=== PATIENT | female | born 2000 | race Caucasian/White ===

== ENCOUNTER 2019-02-12 05:57 | Outpatient (CLI) | payer OTHER ==
[2019-02-12 06:55] LABS: T.VAGINALIS (WET MOUNT) NO TRICHOMONAS SEEN; WBCS (WET MOUNT) FEW WBCS SEEN; YEAST (WET MOUNT) NO YEAST SEEN
[2019-02-12 06:56] LABS: BACTERIA (WET MOUNT) 3+ BACTERIA SEEN; EPITHELIALS (WET MOUNT) 3+ EPITHELIALS SEEN; RBCS (WET MOUNT) RARE RBCS SEEN
[2019-02-12 08:15] LABS: CHLAM PCR NOT DETECTED (NOT DETECT)
--- NOTE | 2019-02-12 08:41 | RADIOLOGY REPORT (SQ) ---
EXAM DESCRIPTION: U/S OB LIMITED COMPLETED DATE/TIME: 02/12/2019 7:44 am REASON FOR STUDY: R/O PTL COMPARISON: None. TECHNIQUE: Limited transabdominal grayscale ultrasound for evaluation of specific requested obstetri mandy parameters. LIMITATIONS: None. FINDINGS: CERVICAL LENGTH: 3.7 cm. Closed. YANET: 13.4 cm. FHR: 158 beats per minute. PRESENTATION: Transverse. PLACENTA: Anterior placenta. ANATOMY: Not assessed OTHER: AKUA: 05/18/2019. EGA: 27 weeks 6 days. EFW: 1142 grams +/- 169 grams IMPRESSION: LIMITED OBSTETRICAL ULTRASOUND WITH MEASURED PARAMETERS DELINEATED ABOVE. Trimester of : Second trimester - 13 weeks 1 day to 27 weeks 6 days. TECHNICAL DOCUMENTATION: JOB ID: [id number]- All Rights Reserved Reading location - IP/workstation name: [email or web address]
[2019-02-12 09:35] LABS: APPEARANCE,URINE CLEAR; BILIRUBIN,URINE NEGATIVE (NEGATIVE); COLOR,URINE STRAW; GLUCOSE, URINE NEGATIVE (NEGATIVE); KETONES,URINE NEGATIVE (NEGATIVE); LEUKOCYTE ESTERASE,URINE SMALL (NEGATIVE); NITRITE,URINE NEGATIVE (NEGATIVE); PROTEIN,URINE NEGATIVE (NEGATIVE); URINE SPECIFIC GRAVITY 1.005; UROBILINOGEN,URINE NEGATIVE mg/dL (<2.0)
[2019-02-12 10:05] LABS: URINE AMPHETAMINES SCREEN NEGATIVE; URINE BARBITURATES SCREEN NEGATIVE; URINE BENZODIAZEPINES SCREEN NEGATIVE; URINE COCAINE SCREEN NEGATIVE; URINE MARIJUANA (THC) SCREEN NEGATIVE; URINE METHADONE SCREEN NEGATIVE; URINE PHENCYCLIDINE SCREEN NEGATIVE
== END 2019-02-12 09:50 | disposition home or self-care (01) ==
LOC: LC 05:57
PROVIDERS: ATTEND Student in an Organized Health Care Education/Training Program
PROC: 4A1HXCZ Monitoring of Products of Conception, Cardiac Rate, External Approach (ICD-10-PCS; principal; 2019-02-12)
DX: O36.8120 Decreased fetal movements, second trimester, not applicable or unspecified (principal); Z3A.27 27 weeks gestation of pregnancy
CPT/HCPCS: 76815; 80307; 81001; 87210; 87491; 87591

== ENCOUNTER 2019-03-30 09:54 | Outpatient (CLI) | payer OTHER ==
[2019-03-30 10:50] LABS: APPEARANCE,URINE CLEAR; BILIRUBIN,URINE NEGATIVE (NEGATIVE); COLOR,URINE YELLOW; GLUCOSE, URINE NEGATIVE (NEGATIVE); KETONES,URINE NEGATIVE (NEGATIVE); LEUKOCYTE ESTERASE,URINE NEGATIVE (NEGATIVE); NITRITE,URINE NEGATIVE (NEGATIVE); PROTEIN,URINE NEGATIVE (NEGATIVE); UROBILINOGEN,URINE NEGATIVE mg/dL (<2.0)
[2019-03-30 11:00] LABS: URINE AMPHETAMINES SCREEN NEGATIVE; URINE BARBITURATES SCREEN NEGATIVE; URINE BENZODIAZEPINES SCREEN NEGATIVE; URINE COCAINE SCREEN NEGATIVE; URINE METHADONE SCREEN NEGATIVE; URINE PHENCYCLIDINE SCREEN NEGATIVE
[2019-03-30 11:09] LABS: URINE MARIJUANA (THC) SCREEN UNCONFIRMED POSITIVE
== END 2019-03-30 10:55 | disposition home or self-care (01) ==
LOC: LC 09:54
PROVIDERS: ATTEND Obstetrics & Gynecology Gynecology
PROC: 4A1HXCZ Monitoring of Products of Conception, Cardiac Rate, External Approach (ICD-10-PCS; principal; 2019-03-30)
DX: O36.8130 Decreased fetal movements, third trimester, not applicable or unspecified (principal); Z3A.34 34 weeks gestation of pregnancy
CPT/HCPCS: 59025; 81001; 80307; 84112; G0480 ×2; 80349

== ENCOUNTER 2019-04-13 13:07 | Inpatient (IN) | payer OTHER ==
[2019-04-13 14:01] LABS: APPEARANCE,URINE CLEAR; BILIRUBIN,URINE NEGATIVE (NEGATIVE); COLOR,URINE YELLOW; GLUCOSE, URINE NEGATIVE (NEGATIVE); KETONES,URINE NEGATIVE (NEGATIVE); LEUKOCYTE ESTERASE,URINE NEGATIVE (NEGATIVE); NITRITE,URINE NEGATIVE (NEGATIVE); PROTEIN,URINE NEGATIVE (NEGATIVE); URINE SPECIFIC GRAVITY 1.017; UROBILINOGEN,URINE NEGATIVE mg/dL (<2.0)
[2019-04-13] MEDS ORDERED: BUTALB/ACETAMINOPHEN/CAFFEINE 1 TAB EACH ONE ×2 (14:15→18:01)
[2019-04-13] MEDS ORDERED: BUTALB/ACETAMINOPHEN/CAFFEINE 1 TAB EACH PO ONE ×2 (14:15→17:58)
[2019-04-13 14:28] LABS: URINE AMPHETAMINES SCREEN NEGATIVE; URINE BARBITURATES SCREEN NEGATIVE; URINE BENZODIAZEPINES SCREEN NEGATIVE; URINE COCAINE SCREEN NEGATIVE; URINE METHADONE SCREEN NEGATIVE; URINE PHENCYCLIDINE SCREEN NEGATIVE
[2019-04-13 14:54] LABS: URINE MARIJUANA (THC) SCREEN UNCONFIRMED POSITIVE
[2019-04-13] MEDS ORDERED: MAG HYDROX/AL HYDROX/SIMETH SUSP 30 ML UDCUP ONE (15:24)
[2019-04-13 15:27] LABS: UR PRO/CREAT RATIO RESULT 0.1 mg/mg (0.0-0.2); URINE CREATININE 141.9 mg/dL (16-327); URINE PROTEIN 15.3 mg/dL (<12)
[2019-04-13] MEDS ORDERED: MAG HYDROX/AL HYDROX/SIMETH SUSP 30 ML UDCUP PO ONE (15:30)
[2019-04-13 15:48] LABS: HEMATOCRIT 37.5 % (36.0-47.0); MEAN CORPUSCULAR HEMOGLOBIN 34.1 pg (27.0-33.4); MEAN CORPUSCULAR HGB CONC 34.6 g/dL (32.0-36.0); MEAN CORPUSCULAR VOLUME 99 fl (80-97); PLATELET COUNT 205 10^3/uL (150-450); WHITE BLOOD COUNT 10.5 10^3/uL (4.0-10.5)
[2019-04-13 16:11] LABS: ALBUMIN 3.5 g/dL (3.7-5.6); ALKALINE PHOSPHATASE 127 U/L (50-135); ANION GAP 10 (5-19); ASPARTATE AMINO TRANSFERASE 24 U/L (5-30); BILIRUBIN,DIRECT 0.1 mg/dL (0.0-0.4); BILIRUBIN,TOTAL 0.6 mg/dL (0.2-1.3); BLOOD UREA NITROGEN 6 mg/dL (7-20); CALCIUM 9.5 mg/dL (8.4-10.2); CARBON DIOXIDE 21 mmol/L (22-30); CHLORIDE 105 mmol/L (98-107); GLUCOSE 72 mg/dL (75-110); POTASSIUM 3.5 mmol/L (3.6-5.0); TOTAL PROTEIN 6.2 g/dL (6.3-8.2); URIC ACID 4.7 mg/dL (2.5-6.2)
[2019-04-13] MEDS ORDERED: RINGERS SOLUTION,LACTATED 1,000 ML IV PRN (16:16)
[2019-04-13] MEDS ORDERED: PROMETHAZINE HCL INJ 25 MG/1 ML VIAL IV ONE (16:17)
[2019-04-13] MEDS ORDERED: PROMETHAZINE HCL INJ 25 MG/1 ML VIAL ONE (16:38)
--- NOTE | 2019-04-13 19:50 | Admission Physical ---
Datetime Report Generated by CPN: 04/13/2019 19:50 CURRENT ADMISSION Chief Complaint: Other Chief Complaint Other: headache Admit Plan: Admit to Unit ALLERGIES Medication Allergies: Yes Medication Allergies: Sulfa (Sulfonamide Antibiotics) (04/13/2019) Latex: No Latex Allergies OBSTETRICAL HISTORY EDC: 05/08/2019 00:00 : 1 Para: 0 Term: 0 : 0 SAB: 0 IAB: 0 Ectopic: 0 Livin Cesareans: 0 VBACs: 0 Multiple Births: 0 Gestational Diabetes: No Rh Sensitization: No Incompetent Cervix: No STAN: No Infertility: No ART Treatment: No Uterine Anomaly: No IUGR: No Hx Previous C/S: No Macrosomia: No Hx Loss/Stillborn: No PIH: No Hx : No Placenta Previa/Abruption: No Depression/PP Depression: No PTL/PROM: No Post Hemorrhage: No Current Procedures: Ultrasound Obstetrical History Comments: G1 - Current SEE RECORDS Alcohol: No Marijuana : No Cocaine: No Other Illicit Drugs: No Cigarettes: Never Smoker. [id number] MEDICAL HISTORY Diabetes: No Blood Transfusion: No Pulmonary Disease (Asthma, TB): No Breast Disease: No Hypertension: No Supplies Packer Surgery: No Heart Disease: No Hosp/Surgery: No Autoimmune Disorder: No Anesthetic Complications: No Kidney Disease: No Abnormal Pap Smear: No Neuro/Epilepsy: No Psychiatric Disorders: No Other Medical Diseases: No Hepatitis/Liver Disease: No Significant Family History: No Varicosities/Phlebitis: No Trauma/Violence : No Thyroid Dysfunction: No INFECTIOUS HISTORY Gonorrhea: No Genital Herpes: No Chlamydia: Yes Tuberculosis: No Syphilis: No Hepatitis: No HIV/AIDS Exposure: No Rash or Viral Illness: No HPV: No Infectious History Comments: Hx of Chlamydia - already treated and retested. PHYSICAL EXAM General: Normal HEENT: Normal Neurologic: Normal Thyroid: Normal Heart: Normal Lungs: Normal Breast: Deferred Back: Normal Abdomen: Normal Genitourinary Exam: Normal Extremities: Normal DTRs: Normal Pelvic Type: Adequate Vital Signs: Reviewed MEMBRANES Pooling: Negative Membranes: Intact FETUS A EGA: 36.3 FHR- Baseline: 120 Variability: Moderate 6-25bpm FHR Category: Category I Admit Comment: Admit for 24 hour urine and treatment of headache PLANS FOR LABOR AND DELIVERY Labor and Delivery: None Pain Management: Epidural Feeding Preference: Breast Circumcision: N/A INFORMED CONSENT Signature: with User ID: [email or web address]
[2019-04-14] MEDS: BUTALB/ACETAMINOPHEN/CAFFEINE 1 TAB EACH PO PRN ×3 (06:24→21:23)
--- NOTE | 2019-04-14 08:38 | PDOC PROGRESS REPORT ---
Subjective Progress Note for:: 04/14/19 Subjective:: Pt states that she was up to the bathroom and had some blurred vision which resolved after she returned to the bed. She has a headache and was just given Fioricet. She reports good movement and denies cramping and contractions. Her 24 hr urine will be complete at 5 pm Reason For Visit: 24 HOUR URINE Physical Exam - Physical Exam Vital Signs: Temp Pulse Resp BP Pulse Ox 97.7 F 77 18 134/92 H 100 04/14/19 07:56 04/14/19 07:56 04/14/19 07:56 04/14/19 07:56 04/14/19 07:56 Intake & Output 04/13/19 04/14/19 04/15/19 06:59 06:59 06:59 Weight 80.9 kg General appearance: PRESENT: no acute distress Respiratory exam: PRESENT: clear to auscultation stephanie Cardiovascular exam: PRESENT: RRR GI/Abdominal exam: PRESENT: normal bowel sounds, soft Extremities exam: ABSENT: calf tenderness, clubbing, full ROM, joint swelling, pedal edema, tenderness, +1 edema, +2 edema, other Result Laboratory Results: 04/13/19 15:40 04/13/19 15:40 04/13/19 04/13/19 04/13/19 13:25 15:40 15:40 WBC 10.5 RBC 3.80 Hgb 13.0 Hct 37.5 MCV 99 H MCH 34.1 H MCHC 34.6 RDW 13.0 Plt Count 205 Sodium 135.6 L Potassium 3.5 L Chloride 105 Carbon Dioxide 21 L Anion Gap 10 BUN 6 L Creatinine 0.55 Est GFR ( Amer) > 60 Glucose 72 L Uric Acid 4.7 Calcium 9.5 Total Bilirubin 0.6 AST 24 Alkaline Phosphatase 127 Total Protein 6.2 L Albumin 3.5 L Urine Color YELLOW Urine Appearance CLEAR Urine pH 7.0 Ur Specific [place] 1.017 Urine Protein NEGATIVE Urine Glucose (UA) NEGATIVE Urine Ketones NEGATIVE Urine Blood NEGATIVE Urine Nitrite NEGATIVE Ur Leukocyte Esterase NEGATIVE Assessment & Plan - Diagnosis (1) Third trimester Is this a current diagnosis for this admission?: Yes (2) Elevated blood pressure affecting in third trimester, antepartum Is this a current diagnosis for this admission?: Yes (3) Proteinuria affecting in third trimester Is this a current diagnosis for this admission?: Yes (4) Pre-eclampsia Qualifiers: Trimester: third trimester Qualified Code(s): O14.93 - Unspecified pre- eclampsia, third trimester Is this a current diagnosis for this admission?: Yes - Time Time Spent with patient: 15-24 minutes - Inpatient Certification Based on my medical assessment, after consideration of the patient's comorb idities, presenting symptoms, or acuity I expect that the services needed warrant INPATIENT care.: Yes I certify that my determination is in accordance with my understanding of Medicare's requirements for reasonable and necessary INPATIENT services [42 CFR 412.3e].: Yes Medical Necessity: Need Close Monitoring Due to Risk of Patient Decompensation, Risk of Complication if Not Cared For in Hospital - Plan Summary Plan Summary: 1. PI labs this a.m. 2. Await 24 h urine results 3. Cont present care
[2019-04-14 08:52] LABS: ABSOLUTE BASOPHILS # (AUTO) 0.1 10^3/uL (0.0-0.2); ABSOLUTE LYMPHOCYTES (AUTO) 1.7 10^3/uL (0.5-4.7); ABSOLUTE MONOCYTES (AUTO) 0.5 10^3/uL (0.1-1.4); ABSOLUTE NEUT (AUTO) 5.7 10^3/uL (1.7-8.2); BASOPHILS % (AUTO) 0.7 % (0-2); EOSINOPHILS % (AUTO) 0.4 % (0-6); HEMOGLOBIN 12.5 g/dL (12.0-15.5); LYMPHOCYTES % (AUTO) 21.1 % (13-45); MEAN CORPUSCULAR HGB CONC 34.8 g/dL (32.0-36.0); MEAN CORPUSCULAR VOLUME 98 fl (80-97); MONOCYTES % (AUTO) 6.6 % (3-13); PLATELET COUNT 205 10^3/uL (150-450); RED BLOOD COUNT 3.68 10^6/uL (3.72-5.28); RED CELL DISTRIBUTION WIDTH 13.1 % (11.5-14.0); SEGMENTED NEUTROPHILS % (AUTO) 71.2 % (42-78); TOTAL CELLS COUNTED % (AUTO) 100 %
[2019-04-14 09:21] LABS: ALBUMIN 3.1 g/dL (3.7-5.6); ALKALINE PHOSPHATASE 110 U/L (50-135); ANION GAP 8 (5-19); ASPARTATE AMINO TRANSFERASE 22 U/L (5-30); BILIRUBIN,DIRECT 0.1 mg/dL (0.0-0.4); BILIRUBIN,TOTAL 0.5 mg/dL (0.2-1.3); BLOOD UREA NITROGEN 5 mg/dL (7-20); CALCIUM 8.6 mg/dL (8.4-10.2); CARBON DIOXIDE 22 mmol/L (22-30); CHLORIDE 106 mmol/L (98-107); POTASSIUM 3.6 mmol/L (3.6-5.0); TOTAL PROTEIN 5.7 g/dL (6.3-8.2); URIC ACID 4.9 mg/dL (2.5-6.2)
[2019-04-14 09:31] LABS: GLUCOSE 67 mg/dL (75-110)
[2019-04-14 18:33] LABS: URINE PROTEIN 17.9 mg/dL (<12)
[2019-04-14 18:35] LABS: URINE CREATININE 78.5 mg/dL (16-327)
[2019-04-14 18:37] LABS: 24 HOUR URINE PROTEIN RESULT 345 mg/day (42-225)
--- NOTE | 2019-04-15 01:06 | Non Stress Test Report ---
Non Stress Test Datetime Report Generated by CPN: 04/15/2019 01:05 DEMOGRAPHIC EGA NST: 36.3 EGA NST: 34.3 INDICATION Indication for Study: Ordered by Provider Indication for Study: Decreased Movement; Other Indication for Study (NST) Other: suspected ROM MONITORING Monitor Explained: Monitor Explained; Test Explained; Patient Verbalized Understanding Monitor Explained: Monitor Explained; Test Explained; Patient Verbalized Understanding; Other Time on Monitor: 04/13/2019 19:40 Time on Monitor: 03/30/2019 10:18 Time off Monitor: 04/13/2019 20:13 Time off Monitor: 03/30/2019 10:54 NST Duration: 33 NST Duration: 36 NST INTERVENTIONS NST Interventions: None NST Interventions: None Physician Notified NST: Dr. Benz Physician Notified NST: Cara Dora CNRobin BABY A: [id number] BABY A Movement : Present Movement : Present Movement : Present Contraction Frequency : none Contraction Frequency : 0, irritibility FHR Baseline : 140 FHR Baseline : 145 Accelerations : 15X15 Accelerations : 15X15 Decelerations : None Decelerations : None Variability : Moderate 6-25bpm Variability : Moderate 6-25bpm NST Review: Meets Criteria for Reactive NST NST Review: Meets Criteria for Reactive NST NST Review and Verified By : Surendra Goncalves RN NST Results: Reactive NST REPORT Report Trigger: Send Report
[2019-04-15] MEDS ORDERED: DINOPROSTONE 10 MG VAGINAL INSERT.SR ONE ×2 (01:50→15:17)
[2019-04-15] MEDS ORDERED: RINGERS SOLUTION,LACTATED 300 ML IV ONE (02:00)
[2019-04-15] MEDS ORDERED: OXYTOCIN/NORMAL SALINE 20 UNIT/1,000 ML RTUINJ IV PRN ×2 (02:00→11:11)
[2019-04-15] MEDS ORDERED: RINGERS SOLUTION,LACTATED 1,000 ML IV PRN (02:00)
[2019-04-15] MEDS ORDERED: ACETAMINOPHEN 325 MG TABLET PO PRN (02:00)
[2019-04-15] MEDS ORDERED: DINOPROSTONE 10 MG VAGINAL INSERT.SR PV ONE ×2 (02:00→15:21)
[2019-04-15] MEDS ORDERED: MAG HYDROX/AL HYDROX/SIMETH SUSP 30 ML UDCUP PO PRN (02:00)
[2019-04-15] MEDS ORDERED: ZOLPIDEM TARTRATE 5 MG TABLET ONE ×2 (04:51→22:06)
[2019-04-15] MEDS: ZOLPIDEM TARTRATE 5 MG TABLET PO PRN ×2 (04:54→22:08)
[2019-04-15] MEDS ORDERED: BUTALB/ACETAMINOPHEN/CAFFEINE 1 TAB EACH ONE (07:54)
[2019-04-15] MEDS: BUTALB/ACETAMINOPHEN/CAFFEINE 1 TAB EACH PO PRN (07:57)
[2019-04-16] MEDS ORDERED: DINOPROSTONE 10 MG VAGINAL INSERT.SR ONE ×2 (01:02→17:53)
[2019-04-16] MEDS ORDERED: MISOPROSTOL 0.1 MG TABLET PV ONE (04:01)
[2019-04-16] MEDS ORDERED: MISOPROSTOL 0.1 MG TABLET ONE (05:16)
[2019-04-16 07:03] LABS: ABSOLUTE LYMPHOCYTES (AUTO) 1.6 10^3/uL (0.5-4.7); ABSOLUTE MONOCYTES (AUTO) 0.7 10^3/uL (0.1-1.4); ABSOLUTE NEUT (AUTO) 7.3 10^3/uL (1.7-8.2); EOSINOPHILS % (AUTO) 0.4 % (0-6); HEMATOCRIT 35.3 % (36.0-47.0); HEMOGLOBIN 12.4 g/dL (12.0-15.5); MEAN CORPUSCULAR HEMOGLOBIN 34.4 pg (27.0-33.4); MEAN CORPUSCULAR HGB CONC 35.2 g/dL (32.0-36.0); MEAN CORPUSCULAR VOLUME 98 fl (80-97); MONOCYTES % (AUTO) 7.7 % (3-13); PLATELET COUNT 195 10^3/uL (150-450); RED CELL DISTRIBUTION WIDTH 12.9 % (11.5-14.0); SEGMENTED NEUTROPHILS % (AUTO) 75.9 % (42-78); TOTAL CELLS COUNTED % (AUTO) 100 %; WHITE BLOOD COUNT 9.7 10^3/uL (4.0-10.5)
[2019-04-16 07:23] LABS: ALBUMIN 2.9 g/dL (3.7-5.6); ALKALINE PHOSPHATASE 107 U/L (50-135); ANION GAP 7 (5-19); ASPARTATE AMINO TRANSFERASE 19 U/L (5-30); BILIRUBIN,DIRECT 0.1 mg/dL (0.0-0.4); BILIRUBIN,TOTAL 0.4 mg/dL (0.2-1.3); BLOOD UREA NITROGEN 4 mg/dL (7-20); CALCIUM 8.7 mg/dL (8.4-10.2); CARBON DIOXIDE 23 mmol/L (22-30); CHLORIDE 106 mmol/L (98-107); GLUCOSE 82 mg/dL (75-110); POTASSIUM 3.5 mmol/L (3.6-5.0); TOTAL PROTEIN 5.4 g/dL (6.3-8.2); URIC ACID 4.3 mg/dL (2.5-6.2)
[2019-04-16] MEDS ORDERED: ONDANSETRON 4 MG TAB.RAPDIS PO ONE (10:17)
[2019-04-16] MEDS ORDERED: BUTALB/ACETAMINOPHEN/CAFFEINE 1 TAB EACH ONE (10:20)
[2019-04-16] MEDS ORDERED: ONDANSETRON 4 MG TAB.RAPDIS ONE (10:20)
[2019-04-16] MEDS: BUTALB/ACETAMINOPHEN/CAFFEINE 1 TAB EACH PO PRN (10:27)
[2019-04-16] MEDS ORDERED: DINOPROSTONE 10 MG VAGINAL INSERT.SR PV ONE (18:27)
[2019-04-16] MEDS ORDERED: ZOLPIDEM TARTRATE 5 MG TABLET ONE (23:27)
[2019-04-16] MEDS: ZOLPIDEM TARTRATE 5 MG TABLET PO PRN (23:29)
[2019-04-17] MEDS ORDERED: LIDOCAINE 2% JELLY 5 ML TUBE ONE ×2 (09:19→10:19)
[2019-04-17] MEDS ORDERED: MORPHINE SULFATE 10 MG/ML INJ IV ONE (10:05)
[2019-04-17] MEDS ORDERED: MORPHINE SULFATE 10 MG/ML INJ ONE (10:07)
[2019-04-17] MEDS ORDERED: MISOPROSTOL 0.2 MG TABLET ONE (10:19)
[2019-04-17] MEDS ORDERED: LIDOCAINE 1% INJ-PF (10 MG/ML) 30 ML SDV ONE (10:19)
[2019-04-17] MEDS ORDERED: OXYTOCIN/NORMAL SALINE 20 UNIT/1,000 ML RTUINJ ONE (10:19)
[2019-04-17] MEDS ORDERED: ONDANSETRON HCL INJ/PF 4 MG/2 ML SDV ONE (14:22)
[2019-04-17] MEDS ORDERED: ONDANSETRON HCL INJ/PF 4 MG/2 ML SDV IV ONE (15:00)
[2019-04-17] MEDS ORDERED: BUPIVACAINE HCL 0.25 % INJ/PF (2.5 MG/1 ML) 30 ML VIAL ONE ×2 (18:28→22:46)
[2019-04-17] MEDS ORDERED: FENTANYL/BUPIVACAINE/NS/PF 300 MCG/150 ML RTUINJ EPI ONE (18:28)
[2019-04-17] MEDS ORDERED: EPHEDRINE SULFATE INJ 50 MG/1 ML AMPULE ONE (18:28)
[2019-04-17] MEDS ORDERED: FENTANYL CITRATE INJ/PF 100 MCG/2 ML AMPUL ONE (18:28)
[2019-04-17 18:58] LABS: ABSOLUTE LYMPHOCYTES (AUTO) 1.5 10^3/uL (0.5-4.7); ABSOLUTE MONOCYTES (AUTO) 0.7 10^3/uL (0.1-1.4); ABSOLUTE NEUT (AUTO) 9.5 10^3/uL (1.7-8.2); BASOPHILS % (AUTO) 0.3 % (0-2); EOSINOPHILS % (AUTO) 0.2 % (0-6); HEMATOCRIT 36.7 % (36.0-47.0); HEMOGLOBIN 12.6 g/dL (12.0-15.5); MEAN CORPUSCULAR HEMOGLOBIN 33.8 pg (27.0-33.4); MEAN CORPUSCULAR HGB CONC 34.4 g/dL (32.0-36.0); MEAN CORPUSCULAR VOLUME 98 fl (80-97); MONOCYTES % (AUTO) 6.3 % (3-13); PLATELET COUNT 196 10^3/uL (150-450); RED BLOOD COUNT 3.73 10^6/uL (3.72-5.28); RED CELL DISTRIBUTION WIDTH 13.2 % (11.5-14.0); SEGMENTED NEUTROPHILS % (AUTO) 80.2 % (42-78); TOTAL CELLS COUNTED % (AUTO) 100 %; WHITE BLOOD COUNT 11.8 10^3/uL (4.0-10.5)
[2019-04-17] MEDS ORDERED: LIDOCAINE 2%/EPINEPHRINE INJ 20 ML VIAL ONE (22:43)
[2019-04-17] MEDS ORDERED: LIDOCAINE 2% INJ-PF (20 MG/ML) 10 ML AMPUL ONE (22:44)
[2019-04-17] MEDS ORDERED: PROMETHAZINE HCL INJ 25 MG/1 ML VIAL ONE (23:37)
[2019-04-17] MEDS ORDERED: NALBUPHINE HCL INJ 10 MG/1 ML AMPULE ONE (23:37)
[2019-04-18] MEDS ORDERED: HYDRALAZINE HCL INJ/PF 20 MG/1 ML SDV ONE (00:52)
[2019-04-18] MEDS ORDERED: LIDOCAINE 2% INJ-PF (20 MG/ML) 10 ML AMPUL ONE (01:06)
[2019-04-18] MEDS ORDERED: EPHEDRINE SULFATE INJ 50 MG/1 ML AMPULE ONE (01:19)
[2019-04-18] MEDS ORDERED: FENTANYL/BUPIVACAINE/NS/PF 0 MCG/0 ML RTUINJ EPI ONE (01:19)
[2019-04-18] MEDS ORDERED: BUPIVACAINE HCL 0.25 % INJ/PF (2.5 MG/1 ML) 30 ML VIAL ONE (01:19)
[2019-04-18] MEDS ORDERED: FENTANYL CITRATE INJ/PF 100 MCG/2 ML AMPUL ONE (01:19)
[2019-04-18] MEDS ORDERED: PHENYLEPHRINE HCL INJ/PF 10 MG/1 ML SDV ONE (01:19)
[2019-04-18] MEDS ORDERED: HYDRALAZINE HCL INJ/PF 20 MG/1 ML SDV IV ONE (01:30)
--- NOTE | 2019-04-18 07:16 | Delivery Summary ---
Del Sum A-C Datetime Report Generated by CPN: 04/18/2019 07:16 DELIVERY PERSONNEL DELIVERY PERSONNEL: [id number] Delivery Doctor:: Awa Benz MD Labor and Delivery Nurse:: Fiordaliza Chaudhary Nursery Nurse:: Izabel Chadwick RN Nursery Nurse:: Xuan Worthy RN Bleach Boiler Filler/CRAPS MANAGER: Shannan Ross, ST MATERNAL INFORMATION Delivery Anesthesia: Epidural Medications After Delivery: Pitocin Bolus-Please Comment Meds After Delivery Comment: pitocin 20 units in 1000 ml NSS Delivery QBL: 400 LABOR SUMMARY EDC: 05/08/2019 00:00 No. Babies in Womb: 1 Attempted: No Labor Anesthesia: Epidural LABOR INFORMATION Reason for Induction: Not Applicable; Pre-Eclampsia Onset of Labor: 04/17/2019 22:16 Complete Dilatation: 04/18/2019 03:39 Cervical Ripening Agents: Cytotec @ 1000 Oxytocin: Induction Group B Beta Strep: 1 NO GROUP B STREPTOCOCCUS RECOVERED Antibiotics # of Doses: 0 Steroids Given: None Reason Steroids Not Administered: Not Applicable MEMBRANES Membranes Rupture Method: Artificial Rupture of Membranes: 04/17/2019 15:45 Length of Rupture (hr): 13.52 Amniotic Fluid Color: Clear Amniotic Fluid Amount: Small Amniotic Fluid Odor: Normal STAGES OF LABOR Stage 1 hr: 5 Stage 1 min: 23 Stage 2 hr: 1 Stage 2 min: 37 Stage 3 hr: 1 Stage 3 min: 4 Total Time in Labor hr: 8 Total Time in Labor min: 4 VAGINAL DELIVERY Episiotomy: None Laceration #1: Vaginal Laceration Extension #1: First Degree Laceration #2: None Laceration Extension #2: N/A Laceration #3: None Laceration Extension #3: N/A Other Laceration: labial Laceration Repair: Yes Laceration Repair Note: labial laceration repaired with 3-0 chromic Sponge Count Correct: N/A; Vaginal Sweep Performed Sharps Count Correct: Yes BABY A INFORMATION Delivery Date/Time: 04/18/2019 05:16 Method of Delivery: Vaginal Born in Route : No : N/A Forceps: N/A Vacuum Extraction: N/A Shoulder Dystocia : No PRESENTATION/POSITION BABY A Presentation: Cephalic Cephalic Presentation: Vertex Vertex Position: Left Occipital Anterior Breech Presentation: N/A PLACENTA INFORMATION BABY A Placenta Delivery Time : 04/18/2019 06:20 Placenta Method of Delivery: Spontaneous Placenta Status: Delivered SCORES BABY A Heart Rate 1 min: >100 bpm Resp Effort 1 min: Slow, Irregular Reflex Irritability 1 min: Grimace Muscle Tone 1 min: Active Motion Color 1 min: Body [place], Extremities Blue Resuscitation Effort 1 min: Tactile Stimulation; Oxygen SCORE 1 MIN: 7 Heart Rate 5 min: >100 bpm Resp Effort 5 min: Slow, Irregular Reflex Irritability 5 min: Cough or Sneeze or Pulls Away Muscle Tone 5 min: Active Motion Color 5 min: Body [place], Extremities Blue Resuscitation Effort 5 min: Tactile Stimulation; Oxygen SCORE 5 MIN: 8 INFORMATION BABY A Gestational Age at Delivery: 37.1 Gestational Status: Early Term- 37- 38.6 Weeks Outcome : Liveborn Infant Condition : Stable Sex: Female IDENTIFICATION BABY A Verification Date/Time: 04/18/2019 05:29 ID Band Number: [id number] Mother's Name Verified: Yes Infant RN Verifying Infant: Niranjan corbin JAJA Additional Verifying Personnel: Jasminjaredligia DaltonSaroj RN WEIGHT/LENGTH BABY A Infant Birthweight (gm): 3048 Weight (lb): 6 Infant Weight (oz): 12 Length (in): 20.50 Length (cm): 52.07 CORD INFORMATION BABY A No. Cord Vessels: 3 Cord Blood Taken: Suction: Mouth; Nose ASSESSMENT BABY A Skin to Skin: Yes Skin to Skin Time (min): 120 BABY B INFORMATION : N/A SIGNATURES Signature: with User ID: [email or web address] : Judy was personally available for consultation and serving as supervising physician for the P.
[2019-04-18] MEDS ORDERED: BENZOCAINE/MENTHOL AEROSOL SPRAY 56 ML ONE (08:57)
[2019-04-18] MEDS ORDERED: ACETAMINOPHEN WITH CODEINE #3 TABLET ONE (09:55)
[2019-04-18] MEDS ORDERED: ZOLPIDEM TARTRATE 5 MG TABLET PO PRN (13:18)
[2019-04-18] MEDS ORDERED: BENZOCAINE/MENTHOL AEROSOL SPRAY 56 ML TOP PRN (13:18)
[2019-04-18] MEDS ORDERED: MEASLES,MUMPS&RUBELLA VACC/PF 0.5 ML VIAL SUBCUT PRN (13:18)
[2019-04-18] MEDS ORDERED: ACETAMINOPHEN WITH CODEINE #3 TABLET PO PRN ×2 (13:18)
[2019-04-18] MEDS ORDERED: DIPH/PERTUSS(ACELL)/TETANUS VAC/PF 0.5 ML SYR (>=10YO) IM PRN (13:18)
[2019-04-18] MEDS ORDERED: DIBUCAINE 1% OINTMENT 56 GM TP PRN (13:18)
[2019-04-18] MEDS: PRENATAL VITAMIN W DHA CAPSULE PO SCH (16:10)
[2019-04-18] MEDS: DOCUSATE SODIUM 100 MG CAPSULE PO SCH ×2 (16:10→18:09)
[2019-04-18] MEDS: IBUPROFEN 800 MG TABLET PO SCH ×2 (16:12→21:52)
[2019-04-18] MEDS: SENNOSIDES/DOCUSATE 8.6-50 MG 1 EACH TABLET PO SCH (16:12)
[2019-04-18] MEDS: FERROUS SULFATE 325 MG TABLET PO SCH ×2 (16:12→18:09)
[2019-04-19] MEDS: IBUPROFEN 800 MG TABLET PO SCH ×3 (05:45→22:13)
[2019-04-19 08:16] LABS: HEMATOCRIT 30.3 % (36.0-47.0); HEMOGLOBIN 10.6 g/dL (12.0-15.5); MEAN CORPUSCULAR HEMOGLOBIN 34.5 pg (27.0-33.4); MEAN CORPUSCULAR HGB CONC 35.1 g/dL (32.0-36.0); MEAN CORPUSCULAR VOLUME 99 fl (80-97); PLATELET COUNT 147 10^3/uL (150-450); RED BLOOD COUNT 3.08 10^6/uL (3.72-5.28); RED CELL DISTRIBUTION WIDTH 13.4 % (11.5-14.0); WHITE BLOOD COUNT 10.6 10^3/uL (4.0-10.5)
[2019-04-19] MEDS: DOCUSATE SODIUM 100 MG CAPSULE PO SCH ×2 (11:27→18:28)
[2019-04-19] MEDS: SENNOSIDES/DOCUSATE 8.6-50 MG 1 EACH TABLET PO SCH (11:27)
[2019-04-19] MEDS: PRENATAL VITAMIN W DHA CAPSULE PO SCH (11:28)
[2019-04-19] MEDS: FERROUS SULFATE 325 MG TABLET PO SCH ×2 (11:28→18:28)
--- NOTE | 2019-04-19 12:34 | PDOC PROGRESS REPORT ---
Subjective-OB Progress Note for:: 04/19/19 Subjective: Pt doing well, PPD #1. Reports light bleeding, reg diet and voiding without difficulty. No concerns. Physical Exam (OB) Vital Signs: Temp Pulse Resp BP Pulse Ox 98.2 F 72 18 138/84 H 99 04/19/19 08:41 04/19/19 08:41 04/19/19 08:41 04/19/19 08:41 04/19/19 08:41 - PIH/Pre-Eclampsia DTR's: 1 + Clonus: Negative Headache: Present Epigastric Pain: No Visual Changes: No - Lochia Lochia Amount: Scant < 10 ml Lochia Color: Rubra/Red - Abdomen Description: Tender, Soft Hernia Present: No Fundal Description: Firm, Midline Fundal Height: u/u - u/2 Objective-Diagnostic Laboratory: 04/19/19 06:47 04/16/19 06:32 04/19/19 06:47 WBC 10.6 H RBC 3.08 L Hgb 10.6 L Hct 30.3 L MCV 99 H MCH 34.5 H MCHC 35.1 RDW 13.4 Plt Count 147 L Assessment and Plan(PN) - Assessment and Plan (1) Vaginal delivery Is this a current diagnosis for this admission?: Yes (2) First degree perineal laceration during delivery, delivered Is this a current diagnosis for this admission?: Yes (3) Elevated blood pressure affecting in third trimester, antepartum Is this a current diagnosis for this admission?: Yes (4) Pre-eclampsia Qualifiers: Trimester: third trimester Qualified Code(s): O14.93 - Unspecified pre- eclampsia, third trimester Is this a current diagnosis for this admission?: Yes - Time Spent with Patient Time with patient: Less than 15 minutes Medications reviewed and adjusted accordingly: Yes - Disposition Anticipated Discharge: Home Within: within 24 hours
[2019-04-20] MEDS: IBUPROFEN 800 MG TABLET PO SCH (05:33)
[2019-04-20] MEDS: DOCUSATE SODIUM 100 MG CAPSULE PO SCH (09:25)
[2019-04-20] MEDS: PRENATAL VITAMIN W DHA CAPSULE PO SCH (09:25)
[2019-04-20] MEDS: FERROUS SULFATE 325 MG TABLET PO SCH (09:26)
[2019-04-20] MEDS: SENNOSIDES/DOCUSATE 8.6-50 MG 1 EACH TABLET PO SCH (09:26)
--- NOTE | 2019-04-20 10:21 | PDOC PROGRESS REPORT ---
Subjective-OB Progress Note for:: 04/20/19 Subjective: Doing well, feels fine, no headache, , wants to go home, scant bleeding Physical Exam (OB) Vital Signs: Temp Pulse Resp BP Pulse Ox 98.0 F 67 16 141/98 H 99 04/20/19 09:06 04/20/19 09:06 04/20/19 09:06 04/20/19 09:06 04/20/19 09:06 Intake & Output 04/19/19 04/20/19 04/21/19 06:59 06:59 06:59 Intake Total 650 Balance 650 - PIH/Pre-Eclampsia DTR's: 2 + Clonus: Negative Headache: Absent Epigastric Pain: No Visual Changes: No - Lochia Lochia Amount: Scant < 10 ml Lochia Color: Rubra/Red - Abdomen Description: Soft Hernia Present: No Fundal Description: Firm, Midline Fundal Height: u/u - u/2 Objective-Diagnostic Laboratory: 04/19/19 06:47 04/16/19 06:32 Assessment and Plan(PN) - Assessment and Plan (1) Elevated blood pressure affecting in third trimester, antepartum Is this a current diagnosis for this admission?: Yes (2) Proteinuria affecting in third trimester Is this a current diagnosis for this admission?: Yes (3) Pre-eclampsia Qualifiers: Trimester: third trimester Qualified Code(s): O14.93 - Unspecified pre- eclampsia, third trimester Is this a current diagnosis for this admission?: Yes (4) Vaginal delivery Is this a current diagnosis for this admission?: Yes (5) First degree perineal laceration during delivery, delivered Is this a current diagnosis for this admission?: Yes - Time Spent with Patient Time with patient: Less than 15 minutes Medications reviewed and adjusted accordingly: Yes - Disposition Anticipated Discharge: Home Within: within 24 hours
--- NOTE | 2019-04-20 10:28 | PDOC DISCHARGE SUMMARY ---
Impression - Admit/DC Date/PCP Admission Date/Primary Care Provider: 04/15/19 02:00 AP VALDEZ MD Discharge Date: 04/20/19 - Discharge Diagnosis (1) Elevated blood pressure affecting in third trimester, antepartum Is this a current diagnosis for this admission?: Yes (2) Proteinuria affecting in third trimester Is this a current diagnosis for this admission?: Yes (3) Pre-eclampsia Is this a current diagnosis for this admission?: Yes (4) Vaginal delivery Is this a current diagnosis for this admission?: Yes (5) First degree perineal laceration during delivery, delivered Is this a current diagnosis for this admission?: Yes - Additional Information Resuscitation Status: Full Code Discharge Diet: As Tolerated, Regular Discharge Activity: Activity As Tolerated, No Lifting Over 10 Pounds, No Lifting/Push/Pulling, Pelvic Rest Referrals: AP VALDEZ MD [Primary Care Provider] - (RTC Saturday for BP check) Prescriptions: Labetalol HCl [Normodyne 200 mg Tablet] 100 mg PO Q12 #30 tablet Home Medications: Prenat 115/Iron Fum/Folic/Dss [ 19 Tablet] 1 tab PO DAILY 02/12/19 Labetalol HCl [Normodyne 200 mg Tablet] 100 mg PO Q12 #30 tablet 04/20/19 HPI Gestational Age: 37.1 Reason(s) for Admission: Induction of Labor, Group B Strep Positive Admission Note: Pre-eclampsia Procedures: NST, Ultrasound Intrapartum Procedure(s): Spontaneous Vaginal Delivery Complication(s): Laceration-Vaginal, Laceration-Labial - female, wt 6-12, 7/8 Laceration-Degree: 1st Hospital Course Hospital Course: lior Results Laboratory Results: WBC 10.6 10^3/uL (4.0-10.5) H 04/19/19 06:47 RBC 3.08 10^6/uL (3.72-5.28) L 04/19/19 06:47 Hgb 10.6 g/dL (12.0-15.5) L 04/19/19 06:47 Hct 30.3 % (36.0-47.0) L 04/19/19 06:47 MCV 99 fl (80-97) H 04/19/19 06:47 MCH 34.5 pg (27.0-33.4) H 04/19/19 06:47 MCHC 35.1 g/dL (32.0-36.0) 04/19/19 06:47 RDW 13.4 % (11.5-14.0) 04/19/19 06:47 Plt Count 147 10^3/uL (150-450) L 04/19/19 06:47 Lymph % (Auto) 13.0 % (13-45) 04/17/19 18:28 [place] % (Auto) 6.3 % (3-13) 04/17/19 18:28 Eos % (Auto) 0.2 % (0-6) 04/17/19 18:28 Baso % (Auto) 0.3 % (0-2) 04/17/19 18:28 Absolute Neuts (auto) 9.5 10^3/uL (1.7-8.2) H 04/17/19 18:28 Absolute Lymphs (auto) 1.5 10^3/uL (0.5-4.7) 04/17/19 18:28 Absolute Monos (auto) 0.7 10^3/uL (0.1-1.4) 04/17/19 18:28 Absolute Eos (auto) 0.0 10^3/uL (0.0-0.6) 04/17/19 18:28 Absolute Basos (auto) 0.0 10^3/uL (0.0-0.2) 04/17/19 18:28 Seg Neutrophils % 80.2 % (42-78) H 04/17/19 18:28 Sodium 135.6 mmol/L (137-145) L 04/16/19 06:32 Potassium 3.5 mmol/L (3.6-5.0) L 04/16/19 06:32 Chloride 106 mmol/L (98-107) 04/16/19 06:32 Carbon Dioxide 23 mmol/L (22-30) 04/16/19 06:32 Anion Gap 7 (5-19) 04/16/19 06:32 BUN 4 mg/dL (7-20) L 04/16/19 06:32 Creatinine 0.50 mg/dL (0.52-1.25) L 04/16/19 06:32 Est GFR ( Amer) > 60 (>60) 04/16/19 06:32 Est GFR (MDRD) Non-Af > 60 (>60) 04/16/19 06:32 Glucose 82 mg/dL (75-110) 04/16/19 06:32 Uric Acid 4.3 mg/dL (2.5-6.2) 04/16/19 06:32 Calcium 8.7 mg/dL (8.4-10.2) 04/16/19 06:32 Total Bilirubin 0.4 mg/dL (0.2-1.3) 04/16/19 06:32 Direct Bilirubin 0.1 mg/dL (0.0-0.4) 04/16/19 06:32 Neonat Total Bilirubin Not Reportable 04/16/19 06:32 Neonat Direct Bilirubin Not Reportable 04/16/19 06:32 Neonat Indirect Bili Not Reportable 04/16/19 06:32 AST 19 U/L (5-30) 04/16/19 06:32 ALT 9 U/L (<35) 04/16/19 06:32 Alkaline Phosphatase 107 U/L (50-135) 04/16/19 06:32 Lactate Dehydrogenase 174 U/L (120-246) 04/15/19 08:23 Total Protein 5.4 g/dL (6.3-8.2) L 04/16/19 06:32 Albumin 2.9 g/dL (3.7-5.6) L 04/16/19 06:32 Urine Color YELLOW 04/13/19 13:25 Urine Appearance CLEAR 04/13/19 13:25 Urine pH 7.0 (5.0-9.0) 04/13/19 13:25 Ur Specific [place] 1.017 04/13/19 13:25 Urine Protein NEGATIVE mg/dL (NEGATIVE) 04/13/19 13:25 Urine Glucose (UA) NEGATIVE mg/dL (NEGATIVE) 04/13/19 13:25 Urine Ketones NEGATIVE mg/dL (NEGATIVE) 04/13/19 13:25 Urine Blood NEGATIVE (NEGATIVE) 04/13/19 13:25 Urine Nitrite NEGATIVE (NEGATIVE) 04/13/19 13:25 Urine Bilirubin NEGATIVE (NEGATIVE) 04/13/19 13:25 Urine Urobilinogen NEGATIVE mg/dL (<2.0) 04/13/19 13:25 Ur Leukocyte Esterase NEGATIVE (NEGATIVE) 04/13/19 13:25 Ur 24 Hour Volume 1930 mL 04/14/19 17:25 Ur 24 Hour Volume 1930 mL 04/14/19 17:25 Urine Creatinine 78.5 mg/dL (16-327) 04/14/19 17:25 Ur Creatinine mg/24hr 1.5 mg/day (0.8-2.0) 04/14/19 17:25 Ur Total Protein 24 Hr 345 mg/day (42-225) H 04/14/19 17:25 Protein/Creatinin Ratio 0.1 mg/mg (0.0-0.2) 04/13/19 13:25 Urine Total Protein 17.9 mg/dL (<12) H 04/14/19 17:25 Urine Ascorbic Acid NEGATIVE (NEGATIVE) 04/13/19 13:25 Urine Opiates Screen NEGATIVE 04/13/19 13:25 Urine Methadone Screen NEGATIVE 04/13/19 13:25 Ur Barbiturates Screen NEGATIVE 04/13/19 13:25 Ur Phencyclidine Scrn NEGATIVE 04/13/19 13:25 Ur Amphetamines Screen NEGATIVE 04/13/19 13:25 U Benzodiazepines Scrn NEGATIVE 04/13/19 13:25 Urine Cocaine Screen NEGATIVE 04/13/19 13:25 U Cannabinoids Confirm Positive (.) H 04/13/19 13:25 U Marijuana (THC) Screen UNCONFIRMED POSITIVE 04/13/19 13:25 Blood Type A POSITIVE 04/16/19 06:32 Antibody Screen NEGATIVE 04/16/19 06:32 Plan Health Concerns: BP, started on Labetelol, Plan of Treatment: F/U Saturday, reviewed S&S to report Goals: keep BP under control, routine pp Time Spent: Less than 30 Minutes
[2019-04-20 10:48] VITALS: BP 138/84
[2019-04-20] MEDS ORDERED: LABETALOL HCL 200 MG TABLET PO SCH (11:00)
== END 2019-04-20 11:45 | disposition home or self-care (01) | DRG 807 ==
LOC: LC 13:07 → INTOOBSV 19:51 → LR 19:51 → OBSVTOIN 19:51 → 2S 21:04 → LR 04-15 01:49 → OBSVTOIN 04-15 02:00 → 2S 04-18 11:00
PROVIDERS: ADMIT Obstetrics & Gynecology; ATTEND Obstetrics & Gynecology
PROC: 10907ZC Drainage of Amniotic Fluid, Therapeutic from Products of Conception, Via Natural or Artificial Opening (ICD-10-PCS; 2019-04-17)
PROC: 10E0XZZ Delivery of Products of Conception, External Approach (ICD-10-PCS; principal; 2019-04-18)
PROC: 3E0234Z Introduction of Serum, Toxoid and Vaccine into Muscle, Percutaneous Approach (ICD-10-PCS; 2019-04-20)
DX: O14.94 Unspecified pre-eclampsia, complicating childbirth (principal); Z37.0 Single live birth; O99.824 Streptococcus B carrier state complicating childbirth; O70.0 First degree perineal laceration during delivery; Z3A.37 37 weeks gestation of pregnancy; Z88.2 Allergy status to sulfonamides; Z86.19 Personal history of other infectious and parasitic diseases; Z23 Encounter for immunization
CPT/HCPCS: 36415; 59025; 80053; 80307; 80349; 81005; 82570; 83615; 84156; 84550; 85025; 85027; 86850; 86900; 86901; 87081; 90707; G0480; J0360; J2270; J2300; J2370; J2405; J2550; J2590; J3010; J3490; S0119